=== PATIENT | male | born 1975 | race Caucasian/White ===

== ENCOUNTER 2018-04-09 11:20 | Emergency (ER) | payer MEDICAID ==
[~2018-04-09] VITALS: Ht 172.7 cm; Wt 86.0 kg
[2018-04-09 11:31] VITALS: Ht 172.7 cm; Wt 86.0 kg
[2018-04-09] MEDS ORDERED: ONDANSETRON (ODT) 4 MG TAB ODT STA (12:14)
[2018-04-09] MEDS ORDERED: KETOROLAC 60 MG INJ IM STA (12:14)
[2018-04-09] MEDS ORDERED: ACETAMINOPHEN 325 MG TAB PO ONE (12:30)
[2018-04-09] MEDS ORDERED: AMOX500C2 PO (13:25)
[2018-04-09] MEDS ORDERED: IBUP-1542 PO (13:25)
--- NOTE | 2018-04-09 13:27 | ERD ---
ER Documentation Chief Complaint Chief Complaint SORE THROAT WITH HEAD ACHE & FEVERS X 2 DAYS HPI This 42-year-old male presents with a 2-day history of body aches, sore throat. He has mild cough and bitemporal headache. Denies vomiting, abdominal pain, diarrhea. ROS All systems reviewed and are negative except as per history of present illness. Medications Home Meds Active Scripts Ibuprofen* (Motrin*) 600 Mg Tab, 600 MG PO Q6, #20 TAB Prov:VINNIE COLE MD 04/09/18 Amoxicillin* (Amoxicillin*) 500 Mg Cap, 500 MG PO TID for 10 Days, CAP Prov:VINNIE COLE MD 04/09/18 Allergies Allergies: Coded Allergies: No Known Allergy (Unverified , 04/09/18) PMhx/Soc Medical and Surgical Hx: pt denies Medical Hx, pt denies Surgical Hx Hx Alcohol Use: No Hx Substance Use: No Hx Tobacco Use: No Smoking Status: Never smoker FmHx Family History: No diabetes, No coronary disease, No other Physical Exam Vitals Vital Signs Date Temp Pulse Resp B/P (MAP) Pulse Ox O2 O2 Flow FiO2 Time Delivery Rate 04/09/18 99.9 139 22 133/93 98 11:31 (106) Physical Exam Const: No acute distress Head: Atraumatic Eyes: Normal Conjunctiva ENT: Normal External Ears, Nose and Mouth. TMs normal. Erythema in the throat. Uvula midline and airway patent. Neck: Full range of motion. No meningismus. Resp: Clear to auscultation bilaterally Cardio: Regular rate and rhythm, no murmurs Abd: Soft, non tender, non distended. Normal bowel sounds Skin: No petechiae or rashes Back: No midline or flank tenderness Ext: No cyanosis, or edema Neur: Awake and alert Psych: Normal Mood and Affect Results 24 hrs Current Medications Medications Dose Sig/Monica Start Time Status Last (Trade) Ordered Route PRN Stop Time Admin Dose Reason Admin Ondansetron 8 mg ONCE STAT 04/09/18 DC 04/09/18 HCl (Zofran ODT 12:14 04/09/18 12:30 Odt) 12:15 Ketorolac 60 mg ONCE STAT 04/09/18 DC 04/09/18 Tromethamine IM 12:14 04/09/18 12:37 (Toradol) 12:16 650 mg ONCE ONCE 04/09/18 DC 04/09/18 Acetaminophen PO 12:30 04/09/18 12:30 (Tylenol 12:31 Tab) Amoxicillin 500 mg ONCE ONCE 04/09/18 PO 13:30 04/09/18 (Amoxicillin) 13:31 Procedures/MDM She presents with fevers, body aches, URI symptoms and sore throat. Strep test is positive. Patient was given amoxicillin, Toradol . As of abscess, signs of airway obstruction, abdominal pain, shortness of breath, hypoxemia, rest or distress. We treated with amoxicillin, ibuprofen, primary care follow-up and return precautions. The patient was stable with no new complaints during the ER course. Clinically, there is no current evidence to suggest meningitis, sepsis, acute abdomen, pneumonia, stroke, acute coronary syndrome, pulmonary embolism, aortic dissection or any other emergent condition appearing to require further evaluation or hospitalization. Patient counseled regarding my diagnostic impression and care plan. Prior to discharge all questions answered. Pt agrees with treatment plan and understands strict return precautions. Pt is instructed to follow up with primary care provider within 24-48 hours. Precautionary instructions provided including instructions to return to the ER if not improving or for any worsening or changing symptoms or concerns. Departure Diagnosis: Primary Impression: Strep pharyngitis Condition: Stable Patient Instructions: Strep Throat, Fever Control (Adult) Additional Instructions: EXAMEN POSITIVO PARA INFECCION EN [place]. Cheque otro vez con jimenez doctor primario en el proximo robert or regresa para mas o nueva simptomas. VINNIE COLE MD Apr 09, 2018 13:27
[2018-04-09] MEDS ORDERED: AMOXICILLIN 500 MG CAP PO ONE (13:30)
[2018-04-09 13:59] VITALS: BP 130/88; PULSE 78; RESP 18
== END 2018-04-09 14:00 | disposition home or self-care (01) ==
LOC: FTE 11:20
DX: J02.0 Streptococcal pharyngitis (principal)
CPT/HCPCS: 87880; 96372; J1885; Z7502; Z7610